=== PATIENT | female | born 1990 | race Hispanic/Latino ===

== ENCOUNTER 2017-03-23 17:38 | Emergency (ER) | payer OTHER ==
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
[2017-03-23 21:15] VITALS: BP 137/92
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
== END 2017-03-23 21:15 | disposition home or self-care (01) ==
LOC: ED 17:38
DX: M54.2 Cervicalgia (principal); R07.89 Other chest pain; J45.909 Unspecified asthma, uncomplicated; F17.200 Nicotine dependence, unspecified, uncomplicated; Z88.1 Allergy status to other antibiotic agents; V49.88XA Car occupant (driver) (passenger) injured in other specified transport accidents, initial encounter; Y93.9 Activity, unspecified; Y99.9 Unspecified external cause status; Y92.410 Unspecified street and highway as the place of occurrence of the external cause
CPT/HCPCS: 71020; 72125

== ENCOUNTER 2021-07-26 16:40 | Emergency (ER) | payer SELFPAY ==
[2021-07-26] MEDS ORDERED: ONDANSETRON 4 MG/2 ML INJ IV ONE (17:28)
[2021-07-26] MEDS ORDERED: KETOROLAC 30 MG/1 ML INJ IV ONE (17:28)
[2021-07-26] MEDS ORDERED: SODIUM CHLORIDE 0.9% 1000 ML 1,000 ML IV ONE (17:28)
[2021-07-26] MEDS ORDERED: MORPHINE 4 MG/1 ML INJ IV ONE (17:28)
--- NOTE | 2021-07-26 17:41 | Emergency Department Report ---
ED Back Pain/Injury HPI - General Chief Complaint: Back Pain/Injury Stated Complaint: HEADACHE,BACK PAIN Time Seen by Provider: 07/26/21 17:28 Source: patient Limitations: No Limitations - History of Present Illness Initial Comments: 30-year-old female was brought to the ER today by EMS with complaints of severe left flank/left lumbar pain. Patient states that the pain started suddenly about a few hours ago. She reports associated low abdominal pain with it. She states that she has vomited 5 times today. She states that she did notice some blood on the tissue when she wiped when she urinated. She states that she has had kidney stones before but this once feels worse and she is unable to tolerate the pain. She denies any fever or chills. She denies any dysuria, urinary frequency or odor. She states that she has an IUD and therefore her periods are irregular and unable to recall her last menstrual cycle. Patient does admit that she drinks alcohol every single day, the last time she drank was yesterday. She denies any history of pancreatitis. She denies any history of abdominal surgeries. She reports no chest pain or shortness of breath MD Complaint: back pain, other (left flank pain) -: Sudden, This afternoon - Related Data Previous Rx's Medication Instructions Recorded Last Taken Type HYDROcodone/APAP 5-325 [[place] 1 each PO Q6HR PRN #20 tablet 06/05/16 Unknown Rx 5/325] Ibuprofen [Motrin] 800 mg PO Q8HR PRN #30 tablet 06/05/16 Unknown Rx Nitrofurantoin [place]/M-Cryst 100 mg PO Q12HR #10 capsule 06/05/16 Unknown Rx [Macrobid CAP] Ibuprofen [Motrin] 600 mg PO Q8H PRN #30 tablet 03/23/17 Unknown Rx Acetaminophen/Codeine [Tylenol 1 tab PO Q6H PRN #12 tab 07/26/21 Unknown Rx /Codeine # 3 tab] Cyclobenzaprine [Flexeril 10 MG 10 mg PO TID PRN #12 tablet 07/26/21 Unknown Rx TAB] Ondansetron [Zofran Odt] 4 mg PO Q8HR #15 tab.rapdis 07/26/21 Unknown Rx Allergies Allergy/AdvReac Type Severity Reaction Status Date / Time ciprofloxacin [From Cipro] AdvReac Hives Verified 07/26/21 16:49 ciprofloxacin HCl AdvReac Hives Verified 07/26/21 16:49 [From Cipro] ED Review of Systems ROS: Stated complaint: HEADACHE,BACK PAIN Other details as noted in HPI Comment: All other systems reviewed and negative Constitutional: denies: chills, fever Eyes: denies: eye pain, eye discharge, vision change ENT: denies: ear pain, throat pain Respiratory: denies: cough, shortness of breath, SOB with exertion, SOB at rest, wheezing Cardiovascular: denies: chest pain, palpitations Gastrointestinal: abdominal pain, nausea, vomiting. denies: diarrhea, constipation, hematemesis, melena, hematochezia Genitourinary: hematuria. denies: urgency, dysuria, frequency, discharge, abnormal menses, dyspareunia Musculoskeletal: back pain, other (left flank pain ) Skin: denies: rash, lesions, change in color, change in hair/nails, pruritus Neurological: denies: headache, weakness, numbness, paresthesias, confusion, abnormal gait, vertigo Psychiatric: denies: anxiety, depression, auditory hallucinations, visual hallucinations, homicidal thoughts, suicidal thoughts Hematological/Lymphatic: denies: easy bleeding, easy bruising ED Past Medical Hx - Past Medical History Hx Asthma: Yes - Social History Smoking Status: Current Every Day Smoker Substance Use Type: Alcohol - Medications Home Medications: Home Medications Medication Instructions Recorded Confirmed Last Taken Type HYDROcodone/APAP 5-325 [[place] 1 each PO Q6HR PRN #20 tablet 06/05/16 Unknown Rx 5/325] Ibuprofen [Motrin] 800 mg PO Q8HR PRN #30 tablet 06/05/16 Unknown Rx Nitrofurantoin [place]/M-Cryst 100 mg PO Q12HR #10 capsule 06/05/16 Unknown Rx [Macrobid CAP] Ibuprofen [Motrin] 600 mg PO Q8H PRN #30 tablet 03/23/17 Unknown Rx Acetaminophen/Codeine [Tylenol 1 tab PO Q6H PRN #12 tab 07/26/21 Unknown Rx /Codeine # 3 tab] Cyclobenzaprine [Flexeril 10 MG 10 mg PO TID PRN #12 tablet 07/26/21 Unknown Rx TAB] Ondansetron [Zofran Odt] 4 mg PO Q8HR #15 tab.rapdis 07/26/21 Unknown Rx ED Physical Exam - General Limitations: No Limitations General appearance: alert, anxious, in distress (Patient appears to be in significant pain and actually writhing on the floor) - Head Head exam: Present: atraumatic, normocephalic, normal inspection - Eye Eye exam: Present: normal appearance, PERRL, EOMI Pupils: Present: normal accommodation - ENT ENT exam: Present: normal exam, mucous membranes moist, TM's normal bilaterally - Neck Neck exam: Present: normal inspection, full ROM - Respiratory Respiratory exam: Present: normal lung sounds bilaterally. Absent: respiratory distress, wheezes, rales, rhonchi - Cardiovascular Cardiovascular Exam: Present: regular rate, tachycardia, normal heart sounds - GI/Abdominal GI/Abdominal exam: Present: soft, tenderness (LUQ ttp ). Absent: distended, guarding, rebound, rigid - Back Exam Back exam: Present: normal inspection. Absent: CVA tenderness (R), CVA tenderness (L), paraspinal tenderness, vertebral tenderness - Neurological Exam Neurological exam: Present: alert, oriented X3, CN II-XII intact, normal gait - Psychiatric Psychiatric exam: Present: normal affect, normal mood - Skin Skin exam: Present: intact ED Course Vital Signs 07/26/21 07/26/21 16:46 21:52 Temperature 99.1 F 99.0 F Pulse Rate 117 H 110 H Respiratory 18 20 Rate Blood Pressure 137/74 108/53 [Left] O2 Sat by Pulse 99 98 Oximetry ED Medical Decision Making - Lab Data Result diagrams: 07/26/21 17:36 07/26/21 17:36 - Radiology Data Radiology results: report reviewed Patient: BUZZ ANTONY MR#: [id number] : 1990 Acct:[id number] Age/Sex: 30 / F ADM Date: 07/26/21 Loc: ED Attending Dr: Ordering Physician: JOSEFINA DE JESUS Date of Service: 07/26/21 Procedure(s): CT abdomen pelvis w con Accession Number(s): [id number] cc: JOSEFINA DE JESUS CT ABDOMEN AND PELVIS WITH CONTRAST INDICATION: Severe left flank pain/abdominal pain 100 ML OMNI 300 CONTRAST: 100 cc Omnipaque 300 IV COMPARISON: None available. All CT scans at this location are performed using CT dose reduction for ALARA by means of automated exposure control. FINDINGS: Lung bases are clear. No pneumoperitoneum is seen. Liver shows fatty infiltration and is enlarged. Hepatic length measures 20.6 cm. No focal lesions are seen. Spleen is not enlarged. No abdominal masses are seen. No lymphadenopathy is seen. Free fluid is noted. No evidence of bowel obstruction is seen. Appendix appears within normal limits. No inflammatory changes are noted. Gallbladder and bile ducts appear within normal limits. No urinary obstructive changes are seen. IUD is noted in appropriate position in the uterine fundus. No adnexal masses are seen. IMPRESSION: No acute abnormalities are seen Signer Name: Dane Villegas MD Signed: 07/26/2021 9:30 PM Workstation Name: [id number] Transcribed By: PETE Dictated By: Dane Villegas MD Electronically Authenticated By: Dane Villegas MD Signed Date/Time: 07/26/212129 DD/ 25 TD/TT: - Medical Decision Making 2152: Patient currently seen in the recliner, resting comfortably and sleeping after IV morphine, Zofran and fluids. She is easily arousable. She states that she still having pain in her lower back. She again denies any pain going down her leg, bowel or bladder incontinence or any saddle anesthesia. She is currently alert oriented x3 and neurologically intact with a normal gait. She does not appear toxic or ill-appearing. Repeat vital signs shows that she is still mildly tachycardic but improved compared to when she first arrived to the ER, she has remained afebrile and blood pressure and pulse ox have been stable. All labs including CT abdomen pelvis reviewed. CBC shows leukopenia with a white count of 1.7. I did do an ANC calculation using Calc, and patient was not found to be neutropenic at this time. Do not suspect sepsis at this time. her CMP shows mild hypokalemia with a potassium of 3.3. Patient was given oral dose of potassium here in the ER. CO2 was mildly decreased at 18, but the remainder of the CMP was unremarkable. Her urinalysis did not suggest UTI. hCG was negative and She had negative CT abdomen pelvis. Exact cause of patient's left flank/low back pain at this time unclear. it Could be musculoskeletal in nature. At this time there is no indication for admission, further testing or specialist consult. Discussed all lab test results including imaging results with patient. Patient will be given referral information to pewter finisher for continued monitoring and follow-up on her leukopenia. And also referral to PCP and also help desk specialist if she continues to have pain in her back. Patient expressed understanding of all instructions and agree with plan. Patient stable at time of discharge. Critical care attestation.: If time is entered above; I have spent that time in minutes in the direct care of this critically ill patient, excluding procedure time. ED Disposition Clinical Impression: Left flank pain, Low back pain, Leukopenia Disposition: HOME / SELF CARE / HOMELESS Is pt being admited?: No Does the pt Need Aspirin: No Condition: Stable Instructions: White Blood Cell Count Test, Flank Pain, Adult, [id number] Additional Instructions: Your CT abdomen pelvis did not show anything acute. Your white blood cell count was decreased today at 1.7. This is not exactly specific for anything emergent at this time, but it is very important that you follow-up with a pewter finisher listed on your discharge instructions to have it repeated and to keep monitoring it. The pain in your left flank/left lower back could you be musculoskeletal at this time but I do recommend that you follow-up with your primary care doctor and or orthospine specialist if he continues for further evaluation including outpatient MRI. In the meantime I recommend that you take the Tylenol threes in the muscular axis and the Zofran as prescribed. Return to the ER if at any point your symptoms changes or worsens in any way Prescriptions: Cyclobenzaprine [Flexeril 10 MG TAB] 10 mg PO TID PRN #12 tablet PRN Reason: Muscle Spasm Acetaminophen/Codeine [Tylenol /Codeine # 3 tab] 1 tab PO Q6H PRN #12 tab PRN Reason: pain Ondansetron [Zofran Odt] 4 mg PO Q8HR #15 tab.rapdis Referrals: [facility] [Provider Group] - 3-5 Days BREANN CANALES MD [Staff Physician] - 3-5 Days (Control Systems Technician) Forms: Work/School Release Form(ED) Time of Disposition: 21:47
[2021-07-26 18:32] LABS: Hematocrit 39.4 % (30.3-42.9); Hemoglobin 12.9 gm/dl (10.1-14.3); Mean Corpuscular HGB Conc 33 % (30-34); Mean Corpuscular Volume 90 fl (79-97); Platelet Count 161 K/mm3 (140-440); Red Blood Count 4.38 M/mm3 (3.65-5.03); Red Cell Distribution Width 14.6 % (13.2-15.2)
[2021-07-26 18:33] LABS: Alanine Aminotransferase 42 units/L (7-56); Albumin 3.7 g/dL (3.9-5); BUN/Creatinine Ratio 9; Bilirubin,Direct 0.3 mg/dL (0-0.2); Blood Urea Nitrogen 7 mg/dL (7-17); Calcium 8.5 mg/dL (8.4-10.2); Hemolysis Index 4
[2021-07-26 19:15] LABS: Bacteria,Urine 1+ /HPF (Negative); Bilirubin,Urine NEG (Negative); Blood,Urine NEG (Negative); Color,Urine Yellow (Yellow); Protein,Urine <15 mg/dL mg/dL (Negative); Urobilinogen,Urine < 2.0 mg/dL (<2.0)
[2021-07-26 19:29] LABS: HCG Qualitative,Urine Negative (Negative)
[2021-07-26 20:22] LABS: RBC Morphology Normal; Total Cells Counted 100
[2021-07-26 20:23] LABS: Platelet Estimate Consistent w Auto
--- NOTE | 2021-07-26 21:34 | Cat Scan Report ---
CT ABDOMEN AND PELVIS WITH CONTRAST INDICATION: Severe left flank pain/abdominal pain 100 ML OMNI 300 CONTRAST: 100 cc Omnipaque 300 IV COMPARISON: None available. All CT scans at this location are performed using CT dose reduction for ALARA by means of automated e xposure control. FINDINGS: Lung bases are clear. No pneumoperitoneum is seen. Liver shows fatty infiltration and is en larged. Hepatic length measures 20.6 cm. No focal lesions are seen. Spleen is not enlarged. No abdomi nal masses are seen. No lymphadenopathy is seen. Free fluid is noted. No evidence of bowel obstructio n is seen. Appendix appears within normal limits. No inflammatory changes are noted. Gallbladder and bile ducts appear within normal limits. No urinary obstructive changes are seen. IUD is noted in appr opriate position in the uterine fundus. No adnexal masses are seen. IMPRESSION: No acute abnormalities are seen Signer Name: Dane Villegas MD Signed: 07/26/2021 9:30 PM Workstation Name: [id number]
[2021-07-26 21:54] VITALS: BP 108/53
[2021-07-26] MEDS ORDERED: POTASSIUM CHLORIDE ER 20 MEQ TAB PO ONE (21:57)
== END 2021-07-26 22:22 | disposition home or self-care (01) ==
LOC: ED 16:40
DX: R10.32 Left lower quadrant pain (principal); M54.59 Other low back pain; D72.819 Decreased white blood cell count, unspecified; J45.909 Unspecified asthma, uncomplicated; F17.200 Nicotine dependence, unspecified, uncomplicated; Z88.1 Allergy status to other antibiotic agents
CPT/HCPCS: 36415; 74177; 80048; 80076; 81001; 81025; 83690; 84703; 85007; 85025; 96361; 96374; 96375; 99284; J1885; J2270; J2405; J7030; Q9967